=== PATIENT | female | born 1930 | race Caucasian/White ===

== ENCOUNTER 2017-06-09 21:14 | Inpatient (IN) | payer OTHER ==
[~2017-06-09] VITALS: Ht 154.9 cm; Wt 54.4 kg
--- NOTE | ~2017-06-09 | 2DMMODE ---
[facility] [address] [place] [address] 2 D/M-MODE ECHOCARDIOGRAM Name: JOSE GARCIA Room #: 402-P ADM IN M.R.#: [id number] Admission: 06/09/17 Attend Phys: Alina Harvey MD Discharge: Date of : 34 Date of Service: 06/11/17 1536 Report #: [id number] THIS REPORT FOR: //name// APPROVED REPORT Study performed: 06/11/2017 14:13:51 EXAM: Comprehensive 2D, Doppler, and color-flow Echocardiogram Patient Location: Echo lab Room #: [facility] Status: routine BSA: 1.52 HR: 56 bpm BP: 209/73 mmHg Rhythm: Irregular Other Information Study Quality: Good Technically limited study due to uncooperative patient.. Indications CVA. Hx: CAD, murmur, HTN, HLP, TIA Echo Enhancing Agent Indication: Rule out Shunt Agent(s) / Amount(s) Used: Agitated Saline 6 cc 2D Dimensions RVDd: 32.65 mm LVEF(%): 52.80 (>50%) IVSd: 12.71 (7-11mm) LVOT Diam: 19.13 (18-24mm) LVDd: 42.19 mm PWd: 12.03 (7-11mm) LVDs: 30.85 (25-40mm) Aortic Root: 28.29 mm Gonzalez's LVEF: 52.80 % Volumes Left Atrial Volume (Systole) Single Plane 4CH: 46.59 mL Single Plane 2CH: 51.27 mL LA ESV Index: 35.00 mL/m2 Aortic Valve AoV Peak Willis.: 2.19 m/s AO Peak Gr.: 19.28 mmHg LVOT Max P.37 mmHg [facility] [address] [place] [address] 2 D/M-MODE ECHOCARDIOGRAM Name: JOSE GARCIA Room #: [address] [place] [address] IN .R.#: [id number] Admission: 06/09/17 Attend Phys: Alina aHrvey MD Discharge: Date of : 34 Date of Service: 06/11/17 1536 Report #: [id number] Mean Gr.: 9.29 mmHg AO V2 Mean: 1.44 m/s LVOT Max V: 0.77 m/s AO V2 VTI: 49.80 cm LISA Vmax: 1.01 cm2 Mitral Valve E/A Ratio: 1.1 MV Decel. Time: 219.42 ms MV E Max Willis.: 0.77 m/s MV A Willis.: 0.68 m/s MV PHT: 63.63 ms IVRT: 86.51 ms Pulmonary Valve PV Peak Willis.: 0.94 m/s PV Peak Gr.: 3.53 mmHg Tricuspid Valve TR Peak Willis.: 2.63 m/s RAP Estimate: 5.00 mmHg TR Peak Gr.: 27.70 mmHg PA Pressure: 33.00 mmHg Left Ventricle The left ventricle is normal size. There is normal LV segmental wall motion. Mild concentric left ventricular hypertrophy. Left ventricular systolic function is normal. LVEF is 60%. Diastolic function is difficult to assess. Right Ventricle The right ventricle is normal size. The right ventricular systolic function is normal. Atria Left atrium is mildly dilated. No shunting noted by contrast bubble injection. The right atrium size is normal. Aortic Valve Aortic valve is calcified. Mild to moderate aortic regurgitation. Mild aortic stenosis. Peak pressure gradient of 19mmHg. Mitral Valve Mitral valve leaflets are mildly thickened. Mild mitral annular calcification. Mild mitral regurgitation. Tricuspid Valve The tricuspid valve is normal in structure. Trace to mild tricuspid regurgitation. Estimated PAP is 30-35mmHg. [address] [place] [place] [address] 2 D/M-MODE ECHOCARDIOGRAM Name: JOSE GARCIA Room #: 402-P [facility] IN .R.#: [id number] Admission: 06/09/17 Attend Phys: Alina Harvey MD Discharge: Date of : 34 Date of Service: 06/11/17 1536 Report #: [id number] Pulmonic Valve The pulmonary valve is normal in structure. Trace pulmonic regurgitation. Great Vessels The aortic root is normal in size. The ascending aorta is normal in size. IVC is normal in size and collapses >50% with inspiration. Pericardium There is no pericardial effusion. <Conclusion> The left ventricle is normal size. Mild concentric left ventricular hypertrophy. Left ventricular systolic function is normal. The right ventricle is normal size. Left atrium is mildly dilated. No shunting noted by contrast bubble injection. Mild aortic stenosis. Peak pressure gradient of 19mmHg. Mild to moderate aortic regurgitation. Mild mitral regurgitation. <ELECTRONICALLY SIGNED> By: Tacho Farias MD 06/11/17 1536 1536 1536 Tacho Farias MD /INF
--- NOTE | ~2017-06-09 | HC ---
[facility] [place] [address] [place] [address] CONSULTATION Name: JOSE GARCIA Room #: 403-P [facility] IN M.R.#: [id number] Admission: 06/09/17 Attend Phys: Alina Harvey MD Discharge: 06/15/17 Date of : 34 Report #: [id number] THIS REPORT FOR: //name// CC: Alina Harvey DATE OF SERVICE: 06/11/2017 HISTORY OF PRESENT ILLNESS: This is an 87-year-old female patient who is not able to provide any reliable history. History is mainly taken by reviewing the patient's records. By record, this patient lives in a intermediate and apparently has mild dementia. This was redictated DICTATION ENDS HERE <ELECTRONICALLY SIGNED> By: Brock Orellana MD 06/16/17 0731 1110 1736 Brock Orellana MD /nt
--- NOTE | ~2017-06-09 | EKG ---
[address] [facility] [place] [address] ELECTROCARDIOGRAM REPORT Name: JOSE GARCIA Room #: 170-15 ADM IN M.R.#: [id number] Admission: 06/09/17 Attend Phys: Alina Harvey MD Discharge: Date of : 34 Report #: [id number] THIS REPORT FOR: //name// [facility] ED Test Date: 2017-06-09 Test Time: 21:54:18 Pat Name: JOSE GARCIA Department: Room: 170 Gender: F [employer] Operator: YAHAIRA : 1930 Requested By: Nicolas Heard Order Number: [id number] MD: González Youssef Measurements Intervals [place] Rate: 72 P: 66 DC: 162 QRS: 41 QRSD: 82 T: 65 QT: 417 QTc: 457 Interpretive Statements Sinus rhythm Atrial premature complexes Consider left ventricular hypertrophy No previous ECG available for comparison Electronically Signed On 06-10-2017 7:54:09 [employer]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
--- NOTE | ~2017-06-09 | HC ---
[facility] [place] [address] [place] [address] CONSULTATION Name: JOSE GARCIA Room #: 403-P [facility] IN M.R.#: [id number] Admission: 06/09/17 Attend Phys: Alina Harvey MD Discharge: 06/15/17 Date of : 34 Report #: [id number] THIS REPORT FOR: //name// CC: Alina Harvey DATE OF SERVICE: 06/12/2017 Date of service is 06/11/2017 and 06/12/2017. HISTORY OF PRESENT ILLNESS: This is an 87-year-old female patient, who was seen by me yesterday. As the other dictation indicates, because of dictation malfunction only small portion of the dictation came through. So I am dictating that note again and this will serve as a combined note of yesterday and today. This patient is not able to provide any history. History is by reviewing the records. This Indicate that this patient has apparently a mild dementia. She can hold a conversation, but she is forgetful. She was admitted with altered mental status and presently she does not have much speech. Looking at it yesterday and today, her problem is severe. She does not know anything which makes it better or worse. REVIEW OF SYSTEMS: Indicate that she has a history of dementia. She has been exposed to influenza virus. Record indicates she had history of acute kidney injury as well as UTI as well as weakness, she does not confirm any of those history. Record also indicate that she has leukopenia, respiratory failure, TIA, but she does not provide any history; convulsion, again she does not provide any further history in that regard; vitamin D deficiency, cervicalgia, anemia, GERD, osteoporosis. Dr. Harvey is off this weekend and I will talk to them when he comes back on Wednesday. This was the 14-point review of systems I can get in this patient. PAST MEDICAL HISTORY: Positive for TIA, but she does not provide any further history in that regard. FAMILY HISTORY: Unavailable because she does not provide any history. SOCIAL HISTORY: She lives in a detention. PHYSICAL EXAMINATION: Her examination yesterday and today was very limited. She is alert. She says a few words, which does not make any sense. She cannot tell me what month it is, what day it is. Her speech is very difficult. She does not or is not able to cooperate with the examination. It looks like she is able to move her eyes and mouth all the direction. I attempted to do the cranial nerve examination and it was mostly unremarkable. She moves all four extremity, but did not cooperate with sensory, reflex or tone examination. She did not understand the instruction for cerebellar sign and did not stare long enough for me to do the fundus examination. She does appear to have some murmur [facility] [address] [place] [address] CONSULTATION Name: JOSE GARCIA Room #: 403-P DIS IN M.R.#: [id number] Admission: 06/09/17 Attend Phys: Alina Harvey MD Discharge: 06/15/17 Date of : 34 Report #: [id number] in the heart, but that appeared to be her baseline. She is a very thin individual who I believe can hear and see, but it is difficult to tell in this patient. LABORATORY DATA: Her white count is 2.8 yesterday when I saw her. Her MRI of the brain does indicate that she may have had a small stroke, difficult to tell. Rest of the workup is pending. MRA of the head is mostly unremarkable and MRA of the neck is also unremarkable. Echocardiogram is pending. IMPRESSION: This patient appeared to have pretty significant dementia, on top of that it looks like she had a small stroke. She should be considered for statin. Family need to be involved to see how aggressive they want to be. My recommendation will to be very conservative in this patient as far as the care is concerned. We did check her vitamin B12 and thyroid and they were normal. RECOMMENDATIONS: 1. Continue aspirin. 2. Await for echocardiogram and have a cardiology followup if necessary on the basis of that. 3. I will suggest starting the patient on statin. 4. I will suggest talking to the family and carry out a very conservative care in this patient if they are agreeable. Please call if further followup is needed in this patient, otherwise, the recommendation is as above. <ELECTRONICALLY SIGNED> By: Brock Orellana MD 06/16/17 0731 1856 222 Brock Orellana MD /nt
[2017-06-09 21:17] VITALS: BP 142/53
[2017-06-09] MEDS ORDERED: CHILDREN'S ASPI81 MG PO (21:28)
[2017-06-09] MEDS ORDERED: CLONIDINE0.1 PO (21:29)
[2017-06-09] MEDS ORDERED: CARBAMAZEPINE100 M2 PO (21:29)
[2017-06-09] MEDS ORDERED: CARDURA4 MG PO (21:29)
[2017-06-09] MEDS ORDERED: DITROPAN XL5 M1 PO (21:30)
[2017-06-09] MEDS ORDERED: DOXYCYCLINE 10100 MG PO (21:30)
[2017-06-09] MEDS ORDERED: FOSAMAX 70 MG T70 MG PO (21:30)
[2017-06-09] MEDS ORDERED: ROBITUSSIN100 MG/53 PO (21:31)
[2017-06-09] MEDS ORDERED: HYDRALAZINE 2525 MG PO (21:31)
[2017-06-09] MEDS ORDERED: ATORVASTATIN CA40 MG PO (21:32)
[2017-06-09] MEDS ORDERED: COZAAR 50 MG TA50 M2 PO (21:32)
[2017-06-09] MEDS ORDERED: NAMENDA 10 MG T10 MG PO (21:34)
[2017-06-09] MEDS ORDERED: NORVASC10 MG PO (21:34)
[2017-06-09] MEDS ORDERED: [UNRECOGNIZED DRUG - OTHER] (21:34)
[2017-06-09] MEDS ORDERED: VITAMIN D1000 UNI1 PO (21:35)
[2017-06-09] MEDS ORDERED: TAMIFLU75 MG PO (21:35)
[2017-06-09] MEDS ORDERED: TYLENOL325 MG PO (21:35)
[2017-06-09 21:36] LABS: HEMATOCRIT 34.5 % (37.0-47.0); HEMOGLOBIN 11.8 gm/dL (12.0-15.0); MCH 30.3 pg (26.0-34.0); MCHC 34.2 g/dL (28.0-37.0); MCV 88.7 fL (80.0-100.0); PLATELET COUNT 181 thou/uL (150-400); RBC 3.89 mil/uL (4.20-5.00); RDW 14.3 % (10.5-14.5); WBC 3.5 thou/uL (4.0-11.0)
[2017-06-09 21:40] LABS: ANION GAP 11 mmol/L (7-16); BUN 36 mg/dL (7-18); CALCIUM 8.4 mg/dL (8.5-10.1); CHLORIDE 105 mmol/L (98-107); CO2 24 mmol/L (21-32); CREATININE 1.5 mg/dL (0.6-1.0); GLUCOSE 99 mg/dL (74-106); POTASSIUM 4.1 mmol/L (3.5-5.1); SODIUM 140 mmol/L (136-145)
[2017-06-09 21:47] LABS: ALBUMIN 3.2 g/dL (3.4-5.0); SGOT 32 U/L (15-37); SGPT 22 U/L (30-65); TOTAL BILIRUBIN 0.2 mg/dL (<0.1-1.0); TOTAL PROTEIN 6.6 g/dL (6.4-8.2); TROPONIN-I < 0.04 ng/mL (<0.06)
[2017-06-09 22:02] LABS: URINE BILIRUBIN NEGATIVE (Negative); URINE BLOOD NEGATIVE (Negative); URINE CLARITY CLEAR; URINE COLOR YELLOW; URINE GLUCOSE-RANDOM* NEGATIVE (Negative); URINE KETONES NEGATIVE (Negative); URINE PROTEIN (DIPSTICK) NEGATIVE (Negative); URINE SPECIFIC GRAVITY 1.025 (1.005-1.035); URINE UROBILINOGEN 0.2 E.U./dl (0.2-1.0)
[2017-06-09 22:03] LABS: URINE LEUKOCYTES-REFLEX TRACE (Negative); URINE NITRITE-REFLEX POSITIVE (Negative)
[2017-06-09 22:15] LABS: BACTERIA-REFLEX >30 Many /HPF (None Seen); CASTS None Seen /LPF (None Seen); CRYSTALS None Seen /LPF (None Seen); SQUAMOUS 0-3 Few /LPF (0-3); URINE RBC 0-2 Rare /HPF (0-2); URINE WBC-REFLEX 0-5 Rare /HPF (0-5)
[2017-06-09 22:19] LABS: ABSOLUTE NEUTROPHILS 2.6 thou/uL (1.4-8.2); ANISOCYTOSIS 1+; POLYCHROMASIA OCCASIONAL
[2017-06-10] VITALS (8 sets, daily range): BP systolic 111–161; BP diastolic 39–58
[2017-06-11 00:15] VITALS: BP 97/55
[2017-06-11 03:04] LABS: HEMATOCRIT 30.5 % (37.0-47.0); HEMOGLOBIN 10.6 gm/dL (12.0-15.0); MCH 30.6 pg (26.0-34.0); MCHC 34.7 g/dL (28.0-37.0); MCV 88.2 fL (80.0-100.0); RBC 3.46 mil/uL (4.20-5.00); RDW 14.1 % (10.5-14.5); WBC 2.8 thou/uL (4.0-11.0)
[2017-06-11 03:11] LABS: CALCIUM 7.8 mg/dL (8.5-10.1); CREATININE 1.1 mg/dL (0.6-1.0); POTASSIUM 3.9 mmol/L (3.5-5.1)
[2017-06-11 04:00] VITALS: BP 102/74
[2017-06-11 08:00] VITALS: BP 188/65
[2017-06-11 11:25] VITALS: BP 209/73
[2017-06-11 11:48] LABS: CHOLESTEROL 177 mg/dL (<200); HDL CHOLESTEROL 59 mg/dL (>40); LDL CHOLESTEROL 102 mg/dL (<100); TRIGLYCERIDE 83 mg/dL (<150); VLDL 17 mg/dL (<40)
[2017-06-11 11:49] LABS: SERUM ASSESSMENT Clear
[2017-06-11 12:14] LABS: TSH 2.072 uIU/mL (0.358-3.740)
[2017-06-11 15:07] VITALS: BP 189/57
[2017-06-11 21:14] VITALS: BP 130/50
[2017-06-12 05:45] VITALS: BP 190/54
[2017-06-12 05:45] LABS: HEMATOCRIT 34.4 % (37.0-47.0); HEMOGLOBIN 11.9 gm/dL (12.0-15.0); MCH 30.1 pg (26.0-34.0); MCHC 34.4 g/dL (28.0-37.0); MCV 87.3 fL (80.0-100.0); RBC 3.94 mil/uL (4.20-5.00); RDW 13.8 % (10.5-14.5); WBC 4.1 thou/uL (4.0-11.0)
[2017-06-12 05:53] LABS: CALCIUM 8.1 mg/dL (8.5-10.1); CREATININE 1.1 mg/dL (0.6-1.0); POTASSIUM 4.3 mmol/L (3.5-5.1)
[2017-06-12 08:00] VITALS: BP 163/37
[2017-06-12 15:51] VITALS: BP 140/55
[2017-06-12 19:07] VITALS: BP 185/77
[2017-06-13 03:25] VITALS: BP 198/74
[2017-06-13 06:56] VITALS: BP 179/61
[2017-06-13 20:00] VITALS: BP 148/53
[2017-06-14 01:42] LABS: HEMATOCRIT 37.8 % (37.0-47.0); HEMOGLOBIN 12.6 gm/dL (12.0-15.0); MCH 29.7 pg (26.0-34.0); MCHC 33.4 g/dL (28.0-37.0); MCV 89.1 fL (80.0-100.0); RBC 4.24 mil/uL (4.20-5.00); RDW 14.2 % (10.5-14.5); WBC 7.4 thou/uL (4.0-11.0)
[2017-06-14 01:44] LABS: CALCIUM 8.5 mg/dL (8.5-10.1); CREATININE 1.1 mg/dL (0.6-1.0); POTASSIUM 3.9 mmol/L (3.5-5.1)
[2017-06-14 04:00] VITALS: BP 155/43
[2017-06-14 08:00] VITALS: BP 161/49
[2017-06-14 16:00] VITALS: BP 184/67
[2017-06-14 19:39] VITALS: BP 143/59
[2017-06-15 03:55] VITALS: BP 142/67
[2017-06-15 07:45] VITALS: BP 170/61
[2017-06-15] MEDS ORDERED: BACTROBAN NASAL1 GM NASAL (09:24)
[2017-06-15] MEDS ORDERED: CRESTOR40 MG PO (09:26)
[2017-06-15] MEDS ORDERED: ROCEPHIN 11 GM/1001 IV (09:26)
[2017-06-15] MEDS ORDERED: VANCO 500500 MG/100 IV (09:28)
[2017-06-15] MEDS ORDERED: PREDNISONE 10 M10 MG PO (09:40)
[2017-06-15] MEDS ORDERED: ALBUTEROL2.5 MG/31 INH (09:40)
[2017-06-15 14:20] VITALS: BP 131/58
== END 2017-06-15 15:52 | DRG 64 ==
LOC: ER 21:14 → 4N 22:51 → EROBS 22:51 → ER 22:51 → 4N 06-10 20:17
PROVIDERS: Internal Medicine; Physician Assistant; Psychiatry & Neurology Neuromuscular Medicine
PROC: 05H933Z Insertion of Infusion Device into Right Brachial Vein, Percutaneous Approach (ICD-10-PCS; principal; 2017-06-14)
DX: I63.9 Cerebral infarction, unspecified (principal); J69.0 Pneumonitis due to inhalation of food and vomit; G93.41 Metabolic encephalopathy; J15.212 Pneumonia due to Methicillin resistant Staphylococcus aureus; N39.0 Urinary tract infection, site not specified; N17.9 Acute kidney failure, unspecified; R47.01 Aphasia; E78.5 Hyperlipidemia, unspecified; K21.9 Gastro-esophageal reflux disease without esophagitis; I25.10 Atherosclerotic heart disease of native coronary artery without angina pectoris; K59.00 Constipation, unspecified; M81.0 Age-related osteoporosis without current pathological fracture; I10 Essential (primary) hypertension; F03.90 Unspecified dementia, unspecified severity, without behavioral disturbance, psychotic disturbance, mood disturbance, and anxiety; J20.9 Acute bronchitis, unspecified; R47.1 Dysarthria and anarthria; B96.20 Unspecified Escherichia coli [E. coli] as the cause of diseases classified elsewhere; R13.10 Dysphagia, unspecified; Z79.82 Long term (current) use of aspirin; Z79.899 Other long term (current) drug therapy; Z86.73 Personal history of transient ischemic attack (TIA), and cerebral infarction without residual deficits; Z88.8 Allergy status to other drugs, medicaments and biological substances
CPT/HCPCS: 10091; 27001